=== PATIENT | female | born 1950 | race African-American/Black ===

== ENCOUNTER 2019-10-23 17:25 | Emergency (ER) | payer MEDICARE, SELFPAY ==
[~2019-10-23] VITALS: Ht 172.7 cm; Wt 91.0 kg
[2019-10-23 18:19] LABS: BASOPHILS % 0.9 % (0.0-2.0); EOSINOPHILS % 0.9 % (0.0-5.0); HEMATOCRIT. 42.8 % (36.0-48.0); HEMOGLOBIN. 14.4 g/dL (12.0-16.0); LYMPHOCYTES % 28.2 % (20.0-50.0); MEAN CORPUSCULAR HEMOGLOBIN 29.6 pg (28.0-32.0); MEAN CORPUSCULAR VOLUME 87.9 fL (81.0-99.0); MEAN PLATELET VOLUME 11.3 fl (7.4-10.4); PLATELET 187 x1000/uL (130-400); RED BLOOD CELL COUNT 4.87 mill/uL (4.2-5.4); RED CELL DISTRIBUTION WIDTH 14.4 % (11.6-14.6)
[2019-10-23 18:24] LABS: CHLORIDE 106 mEq/L (98-107)
[2019-10-23 18:35] LABS: BETA HYDROXYBUTYRATE 1.4 mMol/L (0.0-0.3)
[2019-10-23] MEDS ORDERED: SODIUM CHLORIDE 0.9% 1,000 ML IV ONE (18:59)
[2019-10-23 19:00] LABS: CLARITY URINE CLEAR (CLEAR); COLOR URINE YELLOW (YELLOW); KETONES URINE 3+ (NEGATIVE); LEUKOCYTE ESTERASE URINE NEGATIVE (NEGATIVE); NITRITE URINE NEGATIVE (NEGATIVE); OCCULT BLOOD URINE TRACE (NEGATIVE); PROTEIN URINE 2+ (NEGATIVE)
[2019-10-23] MEDS ORDERED: INSULIN REGULAR (HUMULIN R) 300UNITS/3ML SUBCUT NR (19:20)
[2019-10-23] MEDS ORDERED: CLONIDINE 0.1MG TABLET PO ONE (20:00)
[2019-10-23 21:23] VITALS: BP 178/77
== END 2019-10-23 21:52 | disposition home or self-care (01) ==
LOC: ER 17:25
DX: E11.65 Type 2 diabetes mellitus with hyperglycemia (principal); I10 Essential (primary) hypertension; Z79.4 Long term (current) use of insulin
CPT/HCPCS: 36415; 80053; 81003; 82010; 82962; 83690; 85025; 93005; 96360; 99284; J1815